=== PATIENT | male | born 1945 | race Caucasian/White ===

== ENCOUNTER 2021-01-04 05:20 | Emergency (ER) | payer MEDICARE, OTHER ==
[~2021-01-04] VITALS: Ht 180.3 cm; Wt 86.4 kg
[2021-01-04] MEDS ORDERED: AZIT-83 PO (06:54)
[2021-01-04] MEDS ORDERED: azithromycin 250mg tablet PO ONE ×2 (06:55→08:20)
[2021-01-04 07:53] VITALS: BP 156/87
== END 2021-01-04 08:42 | disposition home or self-care (01) ==
LOC: ER 05:21
DX: U07.1 COVID-19 (principal); R06.00 Dyspnea, unspecified; J44.9 Chronic obstructive pulmonary disease, unspecified; I10 Essential (primary) hypertension; G47.30 Sleep apnea, unspecified; Z87.891 Personal history of nicotine dependence; Z87.01 Personal history of pneumonia (recurrent); Z79.2 Long term (current) use of antibiotics
CPT/HCPCS: 71045; 99283